=== PATIENT | female | born 1995 | race African-American/Black ===

== ENCOUNTER 2021-07-05 12:09 | Outpatient (CLI) | payer OTHER ==
[2021-07-05 12:40] LABS: BASOPHILS # (AUTO) 0.1 K/uL (0.00-0.22); BASOPHILS % (AUTO) 1.2 % (0.0-2.0); EOSINOPHILS # (AUTO) 0.1 K/uL (0-0.4); EOSINOPHILS % (AUTO) 2.6 % (0.0-4.0); HEMATOCRIT 34.9 % (36-48); HEMOGLOBIN 11.7 g/dL (12.0-16.0); LYMPHOCYTES % (AUTO) 45.6 % (20.5-51.1); MEAN CORPUSCULAR HEMOGLOBIN 29 pg (27-31); MEAN CORPUSCULAR HGB CONC 34 g/dL (33-37); MEAN CORPUSCULAR VOLUME 86.2 fL (80-94); MONOCYTES # (AUTO) 0.3 K/uL (0.8-1.0); MONOCYTES % (AUTO) 7.9 % (1.7-9.3); NEUTROPHILS # (AUTO) 1.9 K/uL (1.8-7.7); NEUTROPHILS % (AUTO) 42.7 % (42.2-75.2); PLATELET COUNT (AUTO) 347 K/uL (140-450); RED BLOOD CELL COUNT(AUTO) 4.05 MIL/uL (4.20-5.40); RED CELL DISTRIBUTION WIDTH 16.4 % (11.6-13.7); WHITE BLOOD COUNT (AUTO) 4.4 K/uL (4.8-10.8)
[2021-07-05 13:45] LABS: ALBUMIN 3.8 g/dL (3.4-5.0); CARBON DIOXIDE 28.2 mmol/L (21-32); CHOL/HDL RATIO 2.3 (1-4.5); CREATININE 0.5 mg/dL (0.6-1.3); POTASSIUM 4.2 mmol/L (3.5-5.1); THYROID STIMULATING HORMONE 1.14 uIU/mL (0.34-3.74); TOTAL BILIRUBIN 0.5 mg/dL (0.0-1.0)
== END 2021-07-05 20:09 | disposition home or self-care (01) ==
LOC: MLB 12:09
PROVIDERS: ATTEND Family Medicine
DX: K21.9 Gastro-esophageal reflux disease without esophagitis (principal)
CPT/HCPCS: 36415; 80053; 82306; 84443; 85025; 86003

== ENCOUNTER 2021-11-30 07:10 | Emergency (ER) | payer OTHER ==
[~2021-11-30] VITALS: Ht 160 cm; Wt 62.6 kg
[2021-11-30 07:19] VITALS: BP 126/63
--- NOTE | 2021-11-30 07:22 | NUR ---
PT AMBULATED TO BED 11 WITH STEADY GAIT
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
--- NOTE | 2021-11-30 07:37 | NUR ---
DR HERMOSILLO AT BEDSIDE FOR EVAL
[2021-11-30] MEDS ORDERED: ACETAMINOPHEN EXTRA STRENGTH 500 MG TAB PO ONE (07:45)
[2021-11-30] MEDS ORDERED: CYCLOBENZAPRINE 10 MG TAB PO ONE (07:45)
[2021-11-30] MEDS ORDERED: CYCL-711 PO (07:48)
--- NOTE | 2021-11-30 08:11 | NUR ---
Patient discharged with v/s stable. Written and verbal after care instructions ABOUT LOW BACK SPRAIN given and explained. Patient alert, oriented and verbalized understanding of instructions. Ambulatory with steady gait. INFORMED OF POSSIBLE SIDE EFFECTS OF FLEXERIL WHICH MAY INCLUEDE DIZZINESS, DR HERMOSILLO MADE AWARE, PT SATTED NO CHANGE IN LOC, NO DIZZINESS, NO SLEEPINESS NOTED, STATES AND APPEARS TO BE ALRIGHT TO DRIVE All questions addressed prior to discharge. ID band removed. Patient advised to follow up with PMD. Rx of FLEXERIL given. Patient educated on indication of medication including possible reaction and side effects. Opportunity to ask questions provided and answered.
== END 2021-11-30 08:10 | disposition home or self-care (01) ==
LOC: MED 07:10
DX: M54.50 Low back pain, unspecified (principal); V89.2XXA Person injured in unspecified motor-vehicle accident, traffic, initial encounter; Y93.89 Activity, other specified; Y92.89 Other specified places as the place of occurrence of the external cause; Y99.8 Other external cause status
CPT/HCPCS: 99283